=== PATIENT | male | born 1965 | race Caucasian/White ===

== ENCOUNTER 2016-10-02 18:04 | Inpatient (IN) | payer BC ==
[~2016-10-02] VITALS: Ht 175.3 cm; Wt 87.5 kg
[2016-10-02 18:56] LABS: D-DIMER ELISA 0.16 mg/L FEU (< 0.57)
[2016-10-02 18:59] LABS: EOSINOPHIL (%) 0.1 % (0-5); HEMATOCRIT 41.3 % (38.0-50.0); IMMATURE GRANULOCYTE (%) 0.3 % (0.0-0.7); IMMATURE GRANULOCYTE COUNT 0.4 K/uL; LYMPHOCYTE COUNT 0.5 K/uL (1.0-2.8); MCH 30.4 PG (29.0-34.0); MCHC 34.9 G/DL (30.0-36.0); MCV 87.1 FL (86-99); MEAN PLAT.VOLUME 9.3 uM^3 (9.0-12.4); MONOCYTE (%) 4.6 % (3-12); MONOCYTE COUNT 0.7 K/uL (0-0.8); NEUTROPHIL (%) 91.2 % (45-76); NEUTROPHIL COUNT 13.2 K/uL (1.8-6.4); PLATELET COUNT 219 K/uL (156-360); RBC DIS.WIDTH-CV 13.2 % (11.8-14.6); RBC DIS.WIDTH-SD 40.9 % (39-53); RED BLOOD COUNT 4.74 M/uL (4.00-5.50); WHITE BLOOD COUNT 14.5 K/uL (4.1-10.2)
[2016-10-02 19:04] LABS: CHLORIDE 107 mEq/L (99-109); POTASSIUM 4.4 mEq/L (3.7-5.4); SODIUM 138 mEq/L (136-147)
[2016-10-02 19:06] LABS: GLUCOSE 120 mg/dL (70-99)
[2016-10-02 19:07] LABS: TROP-I INTERPRETATION NEGATIVE; TROPONIN-I < 0.01 ng/mL (0.0-0.30)
[2016-10-02 19:08] LABS: ANION GAP 8 MEQ/L (2-14); TOTAL BILIRUBIN 0.5 mg/dL (0.0-1.0)
[2016-10-02 19:10] LABS: ALKALINE PHOSPHATASE 75 IU/L (3-129); GFR ESTIMATE (CALCULATED) > 59 mL/min/
[2016-10-02 19:11] LABS: UREA NITROGEN (BUN) 12 mg/dL (9-23)
[2016-10-02 22:10] LABS: ADD MIUA? YES; BILIRUBIN NEGATIVE; BLOOD SMALL; COLOR STRAW ((YELLOW)); GLUCOSE (STRIP) NEGATIVE; KETONES NEGATIVE; LEUKOCYTES NEGATIVE; NITRITE NEGATIVE; PROTEIN (STRIP) NEGATIVE; SPECIFIC GRAVITY 1.024 (1.000-1.030); UROBILINOGEN 0.2 MG/DL (0.2-1.0)
[2016-10-02] MEDS ORDERED: ZESTRIL10 MG PO (22:10)
[2016-10-02] MEDS ORDERED: NEXIUM40 MG PO (22:10)
[2016-10-02] MEDS ORDERED: TRICOR145 MG PO (22:11)
[2016-10-02 22:14] LABS: BACTERIA NONE SEEN /HPF; EPITHELIAL CELLS RARE /HPF; MUCUS NONE SEEN /LPF; RED BLOOD CELLS 0-5 /HPF (0-5); UCUL ADDED? NO; WHITE BLOOD CELLS 0-5 /HPF (0-5)
[2016-10-02 23:36] VITALS: BP 102/58
[2016-10-03 08:04] VITALS: BP 104/61
[2016-10-03] MEDS ORDERED: ZESTRIL2.5 MG PO (12:18)
[2016-10-03] MEDS ORDERED: ERGOCALCIF50000 UNIT PO (12:19)
[2016-10-03] MEDS ORDERED: ZANTAC150 MG PO (12:21)
[2016-10-03] MEDS ORDERED: TRICOR48 MG PO (12:22)
[2016-10-03 16:00] VITALS: BP 127/62
[2016-10-03 23:49] VITALS: BP 127/65
[2016-10-04 06:39] LABS: EOSINOPHIL (%) 0.1 % (0-5); HEMATOCRIT 38.4 % (38.0-50.0); IMMATURE GRANULOCYTE (%) 0.1 % (0.0-0.7); LYMPHOCYTE COUNT 1.1 K/uL (1.0-2.8); MCH 30.7 PG (29.0-34.0); MCHC 33.9 G/DL (30.0-36.0); MCV 90.8 FL (86-99); MEAN PLAT.VOLUME 9.6 uM^3 (9.0-12.4); MONOCYTE (%) 11.2 % (3-12); MONOCYTE COUNT 1.1 K/uL (0-0.8); NEUTROPHIL (%) 77.5 % (45-76); NEUTROPHIL COUNT 7.8 K/uL (1.8-6.4); PLATELET COUNT 199 K/uL (156-360); RBC DIS.WIDTH-SD 46.8 % (39-53); RED BLOOD COUNT 4.23 M/uL (4.00-5.50)
[2016-10-04 07:00] LABS: ANION GAP 10 MEQ/L (2-14); CHLORIDE 107 MEQ/L (99-109); GFR ESTIMATE (CALCULATED) > 59 mL/min/; POTASSIUM 3.9 MEQ/L (3.7-5.4); SAMPLE HEMOLYSIS CHECK 0; SAMPLE ICTERIC CHECK 0; SAMPLE LIPEMIA CHECK 0; SODIUM 141 MEQ/L (136-147); UREA NITROGEN (BUN) 17 mg/dL (9-23)
[2016-10-04 07:01] LABS: GLUCOSE 89 mg/dL (70-99)
[2016-10-04 08:00] VITALS: BP 141/79
[2016-10-04 11:32] VITALS: BP 144/84
[2016-10-04 16:17] VITALS: BP 131/88
[2016-10-04 23:06] VITALS: BP 126/81
[2016-10-05 09:21] VITALS: BP 136/89
[2016-10-05 16:30] VITALS: BP 140/90
[2016-10-05 23:13] LABS: INFLUENZA A VIRAL ANTIGEN POSITIVE; INFLUENZA B VIRAL ANTIGEN NEGATIVE
[2016-10-06 07:07] LABS: ALKALINE PHOSPHATASE 56 IU/L (3-129); ANION GAP 7 MEQ/L (2-14); CHLORIDE 103 MEQ/L (99-109); GFR ESTIMATE (CALCULATED) > 59 mL/min/; GLUCOSE 99 mg/dL (70-99); SAMPLE HEMOLYSIS CHECK 0; SAMPLE ICTERIC CHECK 0; SAMPLE LIPEMIA CHECK 0; SODIUM 138 MEQ/L (136-147); TOTAL BILIRUBIN 0.4 MG/DL (0.0-1.0); UREA NITROGEN (BUN) 12 mg/dL (9-23)
[2016-10-06 07:26] VITALS: BP 140/86
[2016-10-06 07:26] LABS: EOSINOPHIL (%) 2.4 % (0-5); EOSINOPHIL COUNT 0.1 K/uL (0-0.3); HEMATOCRIT 39.4 % (38.0-50.0); IMMATURE GRANULOCYTE (%) 0.4 % (0.0-0.7); LYMPHOCYTE COUNT 1.2 K/uL (1.0-2.8); MCH 30.5 PG (29.0-34.0); MCV 89.5 FL (86-99); MEAN PLAT.VOLUME 9.5 uM^3 (9.0-12.4); MONOCYTE (%) 13.3 % (3-12); MONOCYTE COUNT 0.7 K/uL (0-0.8); NEUTROPHIL COUNT 3.4 K/uL (1.8-6.4); PLATELET COUNT 234 K/uL (156-360); RBC DIS.WIDTH-CV 13.6 % (11.8-14.6); RBC DIS.WIDTH-SD 44.8 % (39-53)
[2016-10-06 07:28] LABS: WHITE BLOOD COUNT 5.5 K/uL (4.1-10.2)
[2016-10-06 15:40] VITALS: BP 132/80
[2016-10-06 22:48] VITALS: BP 159/96
[2016-10-07 07:54] VITALS: BP 134/86
[2016-10-07] MEDS ORDERED: OSELTAMIVIR PHO75 MG PO (09:01)
[2016-10-07] MEDS ORDERED: CIPRO250 MG PO (09:05)
== END 2016-10-07 10:27 | disposition home or self-care (01) | DRG 195 ==
LOC: EME 18:04 → EDOF 21:48 → 5EAST 21:48
PROVIDERS: Emergency Medicine; Internal Medicine
DX: J18.9 Pneumonia, unspecified organism (principal); J20.9 Acute bronchitis, unspecified; K21.9 Gastro-esophageal reflux disease without esophagitis; I95.9 Hypotension, unspecified; E78.5 Hyperlipidemia, unspecified; E86.0 Dehydration; J10.1 Influenza due to other identified influenza virus with other respiratory manifestations
CPT/HCPCS: 71020; 71275; 80048; 80053; 81003; 83605; 83880; 84484; 85025; 85379; 87040; 87502; 94640; 94640 76; 94760; 94799; 99202; 99281; 99285; J0456; J0696; J1100; J2543; J7030; J7050

== ENCOUNTER 2017-12-12 16:45 | Emergency (ER) | payer BC ==
[~2017-12-12] VITALS: Ht 175.3 cm; Wt 84.3 kg
[~2017-12-12 16:45] MED LIST: CIPRO250 MG PO; ERGOCALCIF50000 UNIT PO; NEXIUM40 MG PO; OSELTAMIVIR PHO75 MG PO; TRICOR145 MG PO; TRICOR48 MG PO; ZANTAC150 MG PO; ZESTRIL10 MG PO; ZESTRIL2.5 MG PO
[2017-12-12] MEDS ORDERED: MOTRIN600 MG PO (17:55)
[2017-12-12] MEDS ORDERED: NORCO 5/3251 TABLET PO (18:00)
[2017-12-12 18:34] VITALS: BP 143/92
== END 2017-12-12 18:37 | disposition home or self-care (01) ==
LOC: EME 16:45
PROC: 2W3QX1Z Immobilization of Right Lower Leg using Splint (ICD-10-PCS; principal; 2017-12-12)
DX: S82.831A Other fracture of upper and lower end of right fibula, initial encounter for closed fracture (principal); W01.0XXA Fall on same level from slipping, tripping and stumbling without subsequent striking against object, initial encounter; Y93.02 Activity, running; Y92.59 Other trade areas as the place of occurrence of the external cause; I10 Essential (primary) hypertension; K21.9 Gastro-esophageal reflux disease without esophagitis
CPT/HCPCS: 73610; 99281; 99283